=== PATIENT | female | born 1935 | race Caucasian/White ===

== ENCOUNTER 2017-01-16 12:19 | Emergency (ER) | payer MEDICARE, BC ==
[2017-01-16 13:45] LABS: Basophils % (A) 1 %; CH 27.8; CHCM 31.7; Eosinophils # (A) 0.1 k/uL (0-0.7); Eosinophils % (A) 2 %; HCT 42.1 % (34.0-46.0); HDW 2.31; HGB 13.7 gm/dL (11.4-16.0); Luc # (Auto) 0.12; Luc % (Auto) 2; Lymphocytes # (A) 1.7 k/uL (1.0-4.8); Lymphocytes % (A) 28 %; MCH 28.7 pg (25.0-35.0); MCHC 32.6 g/dL (31.0-37.0); MCV 87.8 fL (80.0-100.0); Mean Platelet Volume 7.3; Monocytes # (A) 0.3 k/uL (0-1.0); Monocytes % (A) 5 %; Neutrophils # (A) 3.8 k/uL (1.3-7.7); Neutrophils % (A) 64 %; RBC 4.79 m/uL (3.80-5.40); RDW 14.8 % (11.5-15.5); WBC (Perox) 5.49
[2017-01-16 13:56] LABS: ALT 29 U/L (9-52); AST 19 U/L (14-36); Alkaline Phosphatase 78 U/L (38-126); Anion Gap 8 mmol/L; Blood Urea Nitrogen 10 mg/dL (7-17); Calcium 9.1 mg/dL (8.4-10.2); Carbon Dioxide 25 mmol/L (22-30); Chloride 110 mmol/L (98-107); Glucose 91 mg/dL (74-99); Non-African American GFR(MDRD) >60 (>60 ml/min/1.73 sqM); Potassium 4.2 mmol/L (3.5-5.1); Sodium 143 mmol/L (137-145); Total Bilirubin 0.3 mg/dL (0.2-1.3); Total Protein 7.1 g/dL (6.3-8.2)
--- NOTE | 2017-01-16 13:56 | XR ---
EXAMINATION TYPE: XR chest 2V DATE OF EXAM: 01/16/2017 COMPARISON: Prior chest x-ray 10/06/2012 HISTORY: GI bleeding TECHNIQUE: Frontal and lateral views of the chest are obtained. FINDINGS: There are prominent lung volumes suggesting underlying COPD. The heart is enlarged. Aorta is dense. No pneumonia, pneumothorax, or pleural effusion. Pulmonary vascularity and jimmy are stable. IMPRESSION: Cardiomegaly.
--- NOTE | 2017-01-16 14:04 | ED ---
GI Bleed HPI - General Chief complaint: GI Bleed Stated complaint: Blood in Stool Source: patient Mode of arrival: wheelchair Limitations: no limitations - History of Present Illness Initial comments: 81-year-old female with past medical history of HTN, ND, and is paraplegic with indwelling Parra catheter presenting for evaluation of 2 weeks intermittent GI bleed. She states that she requires suppositories for bowel movements due to her paraplegic condition and that when she uses them she has small amounts of blood per rectum. She states sometimes it is bright red and sometimes it's dark and melanotic with a very foul smell. She has never had these symptoms before and denies previous GI bleeds. She denies any peptic ulcer disease and states that she only has NSAIDs once or twice a week. She has no other symptoms at this time denies chest pain, shortness breath, fevers, chills, nausea, vomiting, diaphoresis, lightheadedness/dizziness. - Related Data Home Medications Medication Instructions Recorded Confirmed ALPRAZolam [Xanax] 0.5 mg PO HS PRN 11/23/13 01/16/17 Acetaminophen Tab [Tylenol] 500 mg PO Q6H PRN 11/23/13 01/16/17 Bisacodyl [Dulcolax] 1 tab PO DAILY PRN 11/23/13 01/16/17 Cholecalciferol [Vitamin D3] 3,000 unit PO DAILY@1200 11/23/13 01/16/17 Diltiazem Cd [Cardizem CD] 240 mg PO DAILY 11/23/13 01/16/17 Multivitamin/Iron/Folic Acid 1 tab PO DAILY 11/23/13 01/16/17 [Centrum Complete Multivit Tab] Polyethylene Glycol 3350 [Miralax] 17 gm PO DAILY 01/16/17 01/16/17 Allergies Allergy/AdvReac Type Severity Reaction Status Date / Time codeine Allergy Unknown Swelling Verified 01/16/17 12:58 Iodinated Contrast Media - Allergy Unknown Unknown Verified 01/16/17 12:58 Oral and [Iodinated Contrast Media - IV Dye] atorvastatin calcium Allergy Unknown Verified 01/16/17 12:58 [From Lipitor] doxycycline Allergy Unknown Verified 01/16/17 12:58 iodine Allergy Unknown Verified 01/16/17 12:58 metronidazole [From Flagyl] Allergy Unknown Verified 01/16/17 12:58 Metronidazole HCl Allergy Unknown Verified 01/16/17 12:58 [From Flagyl] povidone-iodine Allergy Unknown Verified 01/16/17 12:58 [From Betadine] soap [From Betadine] Allergy Unknown Verified 01/16/17 12:58 Review of Systems ROS Statement: Those systems with pertinent positive or pertinent negative responses have been documented in the HPI. ROS Other: All systems not noted in ROS Statement are negative. Constitutional: Denies: fever, chills, weakness, weight change Eyes: Denies: eye pain ENT: Denies: ear pain, throat pain Respiratory: Denies: cough, dyspnea, wheezes, hemoptysis Cardiovascular: Denies: chest pain, palpitations, dyspnea on exertion, orthopnea , edema Endocrine: Denies: fatigue, polydipsia, polyuria Gastrointestinal: Reports: diarrhea, melena, hematochezia. Denies: abdominal pain, nausea, vomiting, constipation, hematemesis Genitourinary: Denies: urgency, dysuria, frequency, hematuria, discharge Musculoskeletal: Denies: back pain Skin: Reports: lesions (To her sacral region and buttocks that she states are healing pressure ulcers). Denies: change in color, change in hair/nails Neurological: Denies: headache, weakness Psychiatric: Denies: anxiety, depression Hematological/Lymphatic: Denies: easy bleeding, easy bruising Past Medical History Past Medical History: Hypertension, Myocardial Infarction (ND) Additional Past Medical History / Comment(s): fracture hip parra cath paraplegic Last Myocardial Infarction Date:: 2001 History of Any Multi-Drug Resistant Organisms: None Reported, MRSA Date of last positivie culture/infection: 2003 MDRO Source:: decubitus ulcer Past Surgical History: Back Surgery, Bladder Surgery, Joint Replacement Past Anesthesia/Blood Transfusion Reactions: Postoperative Nausea & Vomiting ( PONV) Additional Past Anesthesia/Blood Transfusion Reaction / Comment(s): blood transfusion 2012 Past Psychological History: No Psychological Hx Reported Smoking Status: Never smoker General Exam Limitations: no limitations General appearance: alert, in no apparent distress Head exam: Present: atraumatic, normocephalic, normal inspection Eye exam: Present: normal appearance, PERRL, EOMI. Absent: scleral icterus, conjunctival injection, periorbital swelling ENT exam: Present: normal exam, mucous membranes moist Neck exam: Present: normal inspection. Absent: tenderness, meningismus, lymphadenopathy Respiratory exam: Present: normal lung sounds bilaterally. Absent: respiratory distress, wheezes, rales, rhonchi, stridor Cardiovascular Exam: Present: regular rate, normal rhythm, normal heart sounds. Absent: systolic murmur, diastolic murmur, rubs, gallop, clicks GI/Abdominal exam: Present: soft, normal bowel sounds. Absent: distended, tenderness, guarding, rebound, rigid Rectal exam: Present: decreased rectal tone, other (No blood or stool noted on rectal exam). Absent: hemorrhoids, mass Extremities exam: Present: normal capillary refill. Absent: tenderness, pedal edema, joint swelling Back exam: Present: normal inspection Neurological exam: Present: alert, oriented X3, motor sensory deficit, other ( Patient is a paraplegic and has no lower extremity motor activity). Absent: reflexes normal Psychiatric exam: Present: normal affect, normal mood Skin exam: Present: warm, dry, other (Lesions to sacrum representing healing pressure ulcers). Absent: rash Course Vital Signs 01/16/17 01/16/17 12:45 14:01 Temperature 97.7 F Pulse Rate 78 72 Respiratory 20 16 Rate Blood Pressure 140/66 158/78 O2 Sat by Pulse 97 98 Oximetry Medical Decision Making - Medical Decision Making 81-year-old female who is a paraplegic with indwelling Parra catheter presenting for evaluation of intermittent rectal bleeding for the last 2 weeks. She uses suppositories to aid in bowel movements and states that the blood has been bright red as well as melanotic and foul-smelling. There are no other symptoms. She made an appointment with her GI specialist Dr. Darby and the appointment is for February 05. However the symptoms have been increasing and she wanted to be seen prior to that. She did not discuss with her primary care physician. On physical examination she has no abdominal pain, shortness of breath, or any other intrathoracic abnormalities. She has decreased rectal tone on rectal examination and no gross blood is noted on YANCY. There are multiple pressure ulcers to her sacral and buttocks area in multiple stages of healing and she states that she has been seen a specialist for these as well. We will obtain labs, EKG, chest x-ray and reevaluate. Labs revealed no significant abnormalities including hemoglobin of 13.7 and a negative occult stool blood. Hemoglobin is stable compared to previous draws as far back as 3 years ago. Chest x-ray shows cardiomegaly but no acute process. The patient was reevaluated and continued to have a stable physical exam. She was informed of all results and through shared decision making it was determined that she would be discharged with instructions to follow-up with her primary care physician as well as keep her appointment on February 05 with her GI specialist Dr. Zaragoza. She was further advised to continue to monitor her symptoms and return to this facility if they should worsen or persist. The patient and her daughter acknowledged an understanding of this information and agreed with this plan of care. - Lab Data Result diagrams: 01/16/17 13:10 01/16/17 13:10 Lab Results 01/16/17 01/16/17 01/16/17 Range/Units 13:10 13:10 13:10 WBC 6.0 (3.8-10.6) k/uL RBC 4.79 (3.80-5.40) m/uL Hgb 13.7 (11.4-16.0) gm/dL Hct 42.1 (34.0-46.0) % MCV 87.8 (80.0-100.0) fL MCH 28.7 (25.0-35.0) pg MCHC 32.6 (31.0-37.0) g/dL RDW 14.8 (11.5-15.5) % Plt Count 181 (150-450) k/uL Neutrophils % 64 % Lymphocytes % 28 % Monocytes % 5 % Eosinophils % 2 % Basophils % 1 % Neutrophils # 3.8 (1.3-7.7) k/uL Lymphocytes # 1.7 (1.0-4.8) k/uL Monocytes # 0.3 (0-1.0) k/uL Eosinophils # 0.1 (0-0.7) k/uL Basophils # 0.0 (0-0.2) k/uL Sodium 143 (137-145) mmol/L Potassium 4.2 (3.5-5.1) mmol/L Chloride 110 H (98-107) mmol/L Carbon Dioxide 25 (22-30) mmol/L Anion Gap 8 mmol/L BUN 10 (7-17) mg/dL Creatinine 0.40 L (0.52-1.04) mg/dL Est GFR (MDRD) Af Amer >60 (>60 ml/min/1.73 sqM) Est GFR (MDRD) Non-Af >60 (>60 ml/min/1.73 sqM) Glucose 91 (74-99) mg/dL Plasma Lactic Acid Migue 0.7 (0.7-2.0) mmol/L Calcium 9.1 (8.4-10.2) mg/dL Total Bilirubin 0.3 (0.2-1.3) mg/dL AST 19 (14-36) U/L ALT 29 (9-52) U/L Alkaline Phosphatase 78 (38-126) U/L Troponin I (0.000-0.034) ng/mL NT-Pro-B Natriuret Pep pg/mL Total Protein 7.1 (6.3-8.2) g/dL Albumin 3.8 (3.5-5.0) g/dL Lipase 156 (23-300) U/L Stool Occult Blood (Negative) 01/16/17 01/16/17 01/16/17 Range/Units 13:10 13:10 13:10 WBC (3.8-10.6) k/uL RBC (3.80-5.40) m/uL Hgb (11.4-16.0) gm/dL Hct (34.0-46.0) % MCV (80.0-100.0) fL MCH (25.0-35.0) pg MCHC (31.0-37.0) g/dL RDW (11.5-15.5) % Plt Count (150-450) k/uL Neutrophils % % Lymphocytes % % Monocytes % % Eosinophils % % Basophils % % Neutrophils # (1.3-7.7) k/uL Lymphocytes # (1.0-4.8) k/uL Monocytes # (0-1.0) k/uL Eosinophils # (0-0.7) k/uL Basophils # (0-0.2) k/uL Sodium (137-145) mmol/L Potassium (3.5-5.1) mmol/L Chloride (98-107) mmol/L Carbon Dioxide (22-30) mmol/L Anion Gap mmol/L BUN (7-17) mg/dL Creatinine (0.52-1.04) mg/dL Est GFR (MDRD) Af Amer (>60 ml/min/1.73 sqM) Est GFR (MDRD) Non-Af (>60 ml/min/1.73 sqM) Glucose (74-99) mg/dL Plasma Lactic Acid Migue (0.7-2.0) mmol/L Calcium (8.4-10.2) mg/dL Total Bilirubin (0.2-1.3) mg/dL AST (14-36) U/L ALT (9-52) U/L Alkaline Phosphatase (38-126) U/L Troponin I <0.012 (0.000-0.034) ng/mL NT-Pro-B Natriuret Pep 621 pg/mL Total Protein (6.3-8.2) g/dL Albumin (3.5-5.0) g/dL Lipase (23-300) U/L Stool Occult Blood Negative (Negative) 01/16/17 14:01 Normal sinus rhythm with moderate voltage criteria for LVH in aVL, and a ventricular rate of 63, SHANNAN 180, QRS 92, QT/QTc 438/448. Disposition Clinical Impression: GI bleed Disposition: HOME SELF-CARE Condition: Stable Instructions: Gastrointestinal Bleeding (ED) Referrals: Marc Mercer MD [Primary Care Provider] - 1-2 days Time of Disposition: 15:15
[2017-01-16 15:33] VITALS: BP 155/71; PULSE 55; RESP 18; TEMP 98.3
== END 2017-01-16 15:33 | disposition home or self-care (01) ==
LOC: EC 12:19
DX: K92.2 Gastrointestinal hemorrhage, unspecified (principal); I10 Essential (primary) hypertension; Z88.3 Allergy status to other anti-infective agents; Z88.5 Allergy status to narcotic agent; Z88.1 Allergy status to other antibiotic agents; Z91.048 Other nonmedicinal substance allergy status; Z91.041 Radiographic dye allergy status; Z88.8 Allergy status to other drugs, medicaments and biological substances; Z79.899 Other long term (current) drug therapy
CPT/HCPCS: 36415; 71020; 80053; 82272; 83605; 83690; 83880; 84484; 85025; 93005; 99285

== ENCOUNTER 2018-11-11 20:08 | Inpatient (IN) | payer MEDICARE, BC ==
[2018-11-11] MEDS ORDERED: DILTIAZEM DRIP BOLUS FROM BAG 1 MG SOLN IV ONE (20:25)
[2018-11-11] MEDS ORDERED: SODIUM CHLORIDE 0.9% 500 ML 500 ML IV STA (20:35)
--- NOTE | 2018-11-11 20:35 | ED ---
General Adult HPI - General Source: patient, EMS, RN notes reviewed Mode of arrival: EMS Limitations: no limitations <Vitor Hobson P - Last Filed: 11/11/18 22:09> <Miriam Zimmerman - Last Filed: 11/13/18 03:23> - General Chief complaint: Arrhythmia/Palpitations Stated complaint: Afib Time Seen by Provider: 11/11/18 20:24 - History of Present Illness Initial comments: 83-year-old female with a past medical history of NM, hypertension, chronic hip fracture, paraplegia, Parra catheter presents transferred from [facility] for atrial fibrillation. Patient presented to the emergency department with back pain and bilateral leg swelling. Patient was found to be in A. fib with RVR in the heart rates of 150s. Patient was subsequently started on heparin and a Cardizem bolus of 15 was given at [place]. Heart rate normalized the 70s to 80s. When patient presented here to the emergency department she was in A. fib RVR with a ventricular rate of 123. Cardizem drip was started at that time and heparin drip was continued. Patient denies any symptoms at this time states she is feeling well.Patient has no other complaints at this time including shortness of breath, chest pain, abdominal pain, nausea or vomiting, headache, or visual changes. (Vitor Hobson) - Related Data Home Medications Medication Instructions Recorded Confirmed ALPRAZolam [Xanax] 0.5 mg PO HS PRN 11/23/13 11/11/18 Acetaminophen Tab [Tylenol] 1,000 mg PO Q6H PRN 11/23/13 11/11/18 Cholecalciferol [Vitamin D3] 1,000 unit PO DAILY@1200 11/23/13 11/11/18 Diltiazem Cd [Cardizem CD] 240 mg PO DAILY 11/23/13 11/11/18 Multivitamin/Iron/Folic Acid 1 tab PO DAILY@1200 11/23/13 11/11/18 [Centrum Complete Multivit Tab] Sulfamethoxazole/Trimethoprim 1 tab PO HS 11/11/18 11/11/18 [Bactrim DS 800-160 mg] Vitamin E 100 unit PO DAILY@1200 11/11/18 11/11/18 Allergies Allergy/AdvReac Type Severity Reaction Status Date / Time codeine Allergy Unknown Swelling Verified 11/11/18 21:25 Iodinated Contrast- Oral and Allergy Unknown Unknown Verified 11/11/18 21:25 IV Dye [Iodinated Contrast Media - IV Dye] atorvastatin calcium Allergy Unknown Verified 11/11/18 21:25 [From Lipitor] doxycycline Allergy Unknown Verified 11/11/18 21:25 iodine Allergy Unknown Verified 11/11/18 21:25 metronidazole [From Flagyl] Allergy Unknown Verified 11/11/18 21:25 Metronidazole HCl Allergy Unknown Verified 11/11/18 21:25 [From Flagyl] povidone-iodine Allergy Unknown Verified 11/11/18 21:25 [From Betadine] soap [From Betadine] Allergy Unknown Verified 11/11/18 21:25 Review of Systems ROS Other: All systems not noted in ROS Statement are negative. <Vitor Hobson P - Last Filed: 11/11/18 22:09> ROS Other: All systems not noted in ROS Statement are negative. <Miriam Zimmerman P - Last Filed: 11/13/18 03:23> ROS Statement: Those systems with pertinent positive or pertinent negative responses have been documented in the HPI. Past Medical History Past Medical History: Hypertension, Myocardial Infarction (NM) Additional Past Medical History / Comment(s): fracture hip parra cath paraplegic Last Myocardial Infarction Date:: 2001 History of Any Multi-Drug Resistant Organisms: None Reported, MRSA Date of last positivie culture/infection: 2003 MDRO Source:: decubitus ulcer Past Surgical History: Back Surgery, Bladder Surgery, Joint Replacement Additional Past Surgical History / Comment(s): lt hip replacement Past Anesthesia/Blood Transfusion Reactions: Postoperative Nausea & Vomiting (PONV) Additional Past Anesthesia/Blood Transfusion Reaction / Comment(s): blood transfusion 2012 Past Psychological History: No Psychological Hx Reported Smoking Status: Never smoker Past Alcohol Use History: None Reported Past Drug Use History: None Reported - Past Family History Mother Family Medical History: No Reported History <Vitor Hobson P - Last Filed: 11/11/18 22:09> General Exam Limitations: no limitations General appearance: alert, in no apparent distress Head exam: Present: atraumatic, normocephalic, normal inspection Eye exam: Present: normal appearance, PERRL, EOMI. Absent: scleral icterus, conjunctival injection, periorbital swelling ENT exam: Present: normal exam, mucous membranes moist Neck exam: Present: normal inspection, full ROM. Absent: tenderness, meningismus, lymphadenopathy Respiratory exam: Present: normal lung sounds bilaterally. Absent: respiratory distress, wheezes, rales, rhonchi, stridor Cardiovascular Exam: Present: regular rate, normal rhythm, normal heart sounds. Absent: systolic murmur, diastolic murmur, rubs, gallop, clicks GI/Abdominal exam: Present: soft, normal bowel sounds. Absent: distended, tenderness, guarding, rebound, rigid Neurological exam: Present: alert, oriented X3, CN II-XII intact Psychiatric exam: Present: normal affect, normal mood <Vitor Hobson P - Last Filed: 11/11/18 22:09> Course Vital Signs 11/11/18 11/11/18 11/11/18 20:15 21:30 22:00 Temperature 98.4 F Pulse Rate 78 72 85 Respiratory 16 Rate Blood Pressure 99/77 136/87 114/74 O2 Sat by Pulse 99 99 98 Oximetry 11/11/18 11/11/18 11/12/18 22:30 23:00 00:09 Temperature Pulse Rate 68 66 77 Respiratory 16 Rate Blood Pressure 115/79 112/66 105/61 O2 Sat by Pulse 99 99 99 Oximetry Medical Decision Making <Vitor Hobson P - Last Filed: 11/11/18 22:09> - Lab Data Result diagrams: 11/12/18 02:34 11/12/18 02:34 <Miriam Zimmerman P - Last Filed: 11/13/18 03:23> - Medical Decision Making 83 year old female patient is in A. fib with RVR with a ventricular rate of 123 however going in and out of atrial fibrillation transferred from [facility]. Patient is pleasant, well appearing. Cardizem drip started and heparin drip continued. Patient does state she has a history of A fib and on cardizem at home. No blood thinners on board out patient. Blood pressure is stable. Lab work reveals a hemoglobin of 14.1, platelets 183. Sodium 139, potassium 3.4, magnesium 1.8, troponin less than 0.012. CT thorax was obtained which showed a heart borderline-enlarged with trace pericardial effusion small left and trace right pleural effusion. Small patch of groundglass in the posterior right upper lobe suggestive of nonspecific small infectious or inflammatory focus. Patient afebrile without significant WBC count denying cough. Patient will be admitted for afib RVR and cardiology consultation. (Vitor Hobson) I was available for consultation in the emergency department. The history and physical exam were done by the midlevel provider. I was consulted for this patient's care. I reviewed the case with the midlevel provider and based on their presentation of the patient, I agree with the assessment, medical decision making and plan of care as documented. Chart was dictated using [employer] dictation software. Attempts were made to correct any dictation errors however some typographical errors may persist. (Miriam Zimmerman) Disposition Is patient prescribed a controlled substance at d/c from ED?: No Time of Disposition: 21:12 <Vitor Hobson P - Last Filed: 11/11/18 22:09> <Miriam Zimmerman - Last Filed: 11/13/18 03:23> Clinical Impression: Atrial fibrillation with RVR Disposition: ADMITTED IP TO THIS HOSP Condition: Fair
[2018-11-11] MEDS ORDERED: DILTIAZEM 125 MG in SODIUM CHLORIDE 0.9% 100 ML IV SCH (21:00)
[2018-11-11] MEDS ORDERED: HEPARIN SODIUM,PORCINE 5,000 UNIT/ML 1 ML VIAL IV PRN (21:01)
--- NOTE | 2018-11-11 21:08 | XR ---
EXAMINATION TYPE: XR chest 2V DATE OF EXAM: 11/11/2018 COMPARISON: 01/16/[address] 11/11/2018 HISTORY: 83-year-old female with dysrhythmia TECHNIQUE: AP and lateral views FINDINGS: Heart mildly enlarged. Interstitial prominence and hyperinflation. Small effusions are present. No fr ank consolidation or pneumothorax. Degenerative changes at the AC joints. Bridging anterior endplate spondylosis suggesting DISH. IMPRESSION: Mild cardiomegaly and COPD. Small effusions are present and may reflect mild CHF/fluid overload state .
[2018-11-11] MEDS ORDERED: HEPARIN SOD,PORK IN 0.45% NACL 25,000 UNIT in 0.45% NACL 1 250ML.BAG IV SCH (21:15)
[2018-11-11] MEDS ORDERED: NITROGLYCERIN SL TABS 0.4 MG TAB SUBLINGUAL PRN (22:10)
[2018-11-11 23:02] LABS: Appearance,Urine Clear (Clear); Bacteria,Urine Occasional /hpf; Bilirubin,Urine Negative (Negative); Blood,Urine Trace (Negative); Color,Urine Yellow; Glucose,Urine (UA) Negative (Negative); Ketones,Urine 3+ (Negative); Leukocyte Esterase,Urine Moderate (Negative); Mucus,Urine Rare /hpf; Nitrite,Urine Positive (Negative); Protein,Urine Negative (Negative); RBC,Urine 4 /hpf (0-5); Specific Gravity,Urine 1.011 (1.001-1.035); Squamous Epithelial Cell,Urine 2 /hpf (0-4); Urobilinogen,Urine <2.0 mg/dL (<2.0); WBC,Urine 13 /hpf (0-5)
[2018-11-12] MEDS ORDERED: POTASSIUM CHLORIDE ER 20 MEQ TAB.ER PO STA (01:15)
--- NOTE | 2018-11-12 01:17 | P.HPIM ---
History of Present Illness H&P Date: 11/12/18 The patient is an 83 yo F with a PMH of CAD, HTN, and paraplegia w/ chronic indwelling parra and on maintenance abxs w/ Bactrim presented to the ED as a transfer from [facility] for Afib w/ RVR. The patient presented there earlier today for sudden onset of dizziness and feeling ill at home along w/ palpitations. The patient was first believed to be in SVT and was given Adenosine 8 mg and subsequently given Cardizem bolus and was started on the infusion along with Heparin and was transferred to [facility] ED. At time of the interview, the patient reported that her symptoms have resolved completely ever since her heart-rate became better controlled. She notes she has never had such symptoms before. The patient notes that she has been taking Cardizem for the past 25 years though was never told she had A-fib. She denied chest pain, SOB, nausea, vomiting, cough, fever, chills, abdominal pain, or diarrhea. The patient also denied any history of bleeding or noticing bright red blood per rectum or black tarry stools. The patient's records from [facility] were reviewed and she underwent an extensive evaluation there w/ Troponin < 0.012, EKG (from 8:20 pm on 11/11/18) showing Afib w/ RVR at 123 bpm. INR was 1.07, APTT 285, WBC 7, Hgb 14.1, Cr 0.4, and CXR showing mild cardiomegaly and COPD w/ mild pulm edema. Review of Systems Pertinent positives and negatives as discussed in HPI, a complete review of systems was performed and all other systems are negative. Past Medical History Past Medical History: Hypertension, Myocardial Infarction ([place]) Additional Past Medical History / Comment(s): fracture hip parra cath paraplegic Last Myocardial Infarction Date:: 2001 History of Any Multi-Drug Resistant Organisms: None Reported, MRSA Date of last positivie culture/infection: 2003 MDRO Source:: decubitus ulcer Past Surgical History: Back Surgery, Bladder Surgery, Joint Replacement Additional Past Surgical History / Comment(s): lt hip replacement Past Anesthesia/Blood Transfusion Reactions: Postoperative Nausea & Vomiting (PONV) Additional Past Anesthesia/Blood Transfusion Reaction / Comment(s): blood transfusion 2012 Past Psychological History: No Psychological Hx Reported Smoking Status: Never smoker Past Alcohol Use History: None Reported Past Drug Use History: None Reported - Past Family History Mother Family Medical History: No Reported History Medications and Allergies Home Medications Medication Instructions Recorded Confirmed Type ALPRAZolam [Xanax] 0.5 mg PO HS PRN 11/23/13 11/11/18 History Acetaminophen Tab [Tylenol] 1,000 mg PO Q6H PRN 11/23/13 11/11/18 History Cholecalciferol [Vitamin D3] 1,000 unit PO DAILY@1200 11/23/13 11/11/18 History Diltiazem Cd [Cardizem CD] 240 mg PO DAILY 11/23/13 11/11/18 History Multivitamin/Iron/Folic Acid 1 tab PO DAILY@1200 11/23/13 11/11/18 History [Centrum Complete Multivit Tab] Sulfamethoxazole/Trimethoprim 1 tab PO HS 11/11/18 11/11/18 History [Bactrim DS 800-160 mg] Vitamin E 100 unit PO DAILY@1200 11/11/18 11/11/18 History Allergies Allergy/AdvReac Type Severity Reaction Status Date / Time codeine Allergy Unknown Swelling Verified 11/11/18 21:25 Iodinated Contrast- Oral and Allergy Unknown Unknown Verified 11/11/18 21:25 IV Dye [Iodinated Contrast Media - IV Dye] atorvastatin calcium Allergy Unknown Verified 11/11/18 21:25 [From Lipitor] doxycycline Allergy Unknown Verified 11/11/18 21:25 iodine Allergy Unknown Verified 11/11/18 21:25 metronidazole [From Flagyl] Allergy Unknown Verified 11/11/18 21:25 Metronidazole HCl Allergy Unknown Verified 11/11/18 21:25 [From Flagyl] povidone-iodine Allergy Unknown Verified 11/11/18 21:25 [From Betadine] soap [From Betadine] Allergy Unknown Verified 11/11/18 21:25 Physical Exam Vitals: Vital Signs Temp Pulse Resp BP Pulse Ox 11/11/18 23:00 66 112/66 99 11/11/18 22:30 68 115/79 99 11/11/18 22:00 85 114/74 98 11/11/18 21:30 72 136/87 99 11/11/18 20:15 98.4 F 78 16 99/77 99 Intake and Output 11/11/18 11/11/18 11/12/18 14:59 22:59 06:59 Other: Weight 63.503 kg General: non toxic, no distress, appears at stated age, normal weight Derm: no unusual rashes/lesions no unusual ecchymoses, warm, dry Head: atraumatic, normocephalic, symmetric Eyes: EOMI, no lid lag, anicteric sclera, pupils equal round reactive to light ENT: Nose and ears atraumatic, no thrush, no pharyngeal erythema Neck: No thyromegaly, no cervical lymphadenopathy, trachea midline, supple Mouth: no lip lesion, mucus membranes moist Cardiovascular: S1S2 reg, no murmur, positive posterior tibial pulse bilateral, 2+ paige LE edema, capillary refill less than 2 seconds Lungs: CTA bilateral, no rhonchi, no rales , no accessory muscle use Abdominal: soft, nontender to palpation, no guarding, no appreciable organomegaly, normal bowel sounds Ext: no gross muscle atrophy, muscle strength 5 out of 5 in UEs paige w/ 0/5 in LEs paige, no contractures, Neuro: CN II-XI grossly intact, light touch intact all 4 extremities, finger to nose within normal limits Psych: Alert, oriented, appropriate affect Results Labs: Abnormal Lab Results - Last 24 Hours (Table) 11/11/18 Range/Units 22:36 Urine Ketones 3+ H (Negative) Urine Blood Trace H (Negative) Urine Nitrite Positive H (Negative) Ur Leukocyte Esterase Moderate H (Negative) Urine WBC 13 H (0-5) /hpf Urine WBC Clumps Rare H (None) /hpf Urine Bacteria Occasional H (None) /hpf Urine Mucus Rare H (None) /hpf Assessment and Plan Plan: A-fib w/ RVR -Will c/w Cardizem drip and resume home med Cardizem 240 mg PO ER -Will switch to Eliquis -Monitor CBC -Cardiac monitoring -Echocardiogram -Cardiology consult Hypokalemia -Replace and monitor Chronic conditions: HTN, Paraplegia w/ indwelling parra; CAD -Resume home medications DVT//GI prophylaxis -Eliquis The patient is admitted with an anticipated greater than 2 midnight stay for evaluation of Afib w/ RVR. CODE STATUS:Full Code Discussed with: Patient, daughter Anticipated discharge date: 11/13/[address]: Home A total of 35 minutes was spent on the care of this complex patient more than 50% of the time was spent in counseling and care coordination.
[2018-11-12] MEDS: DILTIAZEM CD 240 MG CAP.ER.24H PO SCH ×2 (01:56→10:23)
[2018-11-12] MEDS: APIXABAN 5 MG TAB PO SCH ×2 (01:57→22:13)
[2018-11-12] MEDS: ALPRAZolam 0.5 MG TAB PO PRN (02:50)
[2018-11-12 02:58] LABS: Anisocytosis Slight; Basophils % (A) 0 %; Eosinophils # (A) 0.1 k/uL (0-0.7); Eosinophils % (A) 1 %; HCT 40.8 % (34.0-46.0); HGB 12.9 gm/dL (11.4-16.0); Lymphocytes # (A) 1.8 k/uL (1.0-4.8); Lymphocytes % (A) 25 %; MCHC 31.7 g/dL (31.0-37.0); MCV 88.2 fL (80.0-100.0); Monocytes # (A) 0.4 k/uL (0-1.0); Monocytes % (A) 6 %; Neutrophils # (A) 4.7 k/uL (1.3-7.7); Neutrophils % (A) 66 %; Platelet Count 157 k/uL (150-450); RBC 4.62 m/uL (3.80-5.40); RDW 16.3 % (11.5-15.5); WBC 7.1 k/uL (3.8-10.6)
[2018-11-12 03:11] LABS: ALT 21 U/L (9-52); AST 20 U/L (14-36); Albumin 3.4 g/dL (3.5-5.0); Alkaline Phosphatase 95 U/L (38-126); Anion Gap 9 mmol/L; Blood Urea Nitrogen 8 mg/dL (7-17); Calcium 8.9 mg/dL (8.4-10.2); Carbon Dioxide 22 mmol/L (22-30); Chloride 107 mmol/L (98-107); Cholesterol 151 mg/dL (<200); Glucose 95 mg/dL (74-99); HDL Cholesterol 37 mg/dL (40-60); LDL Cholesterol,Calculated 99 mg/dL (0-99); Potassium 4.4 mmol/L (3.5-5.1); Sodium 138 mmol/L (137-145); Total Bilirubin 0.7 mg/dL (0.2-1.3); Total Protein 6.4 g/dL (6.3-8.2); Triglycerides 74 mg/dL (<150)
[2018-11-12] MEDS: MULTIVITAMINS, THERA 1 EACH TAB PO SCH (10:23)
[2018-11-12] MEDS ORDERED: NON-FORMULARY DRUG (Vitamin E [Vitamin E] 100 UNIT) PO SCH (12:00)
--- NOTE | 2018-11-12 12:02 | P.PN ---
Progress Note - Text Progress Note Date: 11/12/18 83-year-old female with PMH of CAD, hypertension, paraplegia with chronic indwelling Correia presents the ED from [facility] for atrial fibrillation with RVR. Patient was started on heparin drip and Cardizem bolus at [place] which converted the patient to sinus rhythm. Of note, PATIENT reports about some difficulties at home regarding being taking care of along with her has Alzheimer's. She denies any chest pain, shortness of breath or palpitations. Patient is in no acute distress. Heart is regular rate and rhythm. Normal S1-S2. No murmurs rubs or gallops. Lungs are clear to auscultation. There is no lower extremity edema. Atrial fibrillation with rapid ventricular rate, resolved Hypertension Paraplegia with indwelling Correia TSH is within normal limits. Continue diltiazem 240 mg by mouth daily. Anticoagulation with Eliquis 5 mg by mouth twice a day. Keep potassium greater than 4 magnesium greater than 2. Telemetry monitoring. Follow-up echocardiogram. Follow-up cardiology consultation. BP 100/50. Continue diltiazem. Monitor vitals, adjust medications as necessary. Continue Bactrim. Follow social work consult.
--- NOTE | 2018-11-12 13:02 | CONS ---
CONSULTATION CHIEF COMPLAINT: Palpitations. 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 She came to the ER, was found to be in atrial fibrillation, started on an anticoagulant and intravenous Cardizem. She subsequently converted to sinus rhythm and at the time of my evaluation this morning, she is in sinus rhythm and is free of symptoms. Her TSH is normal. There is no prior history of cardiomyopathy, congestive heart failure, coronary artery disease, or cardiac arrhythmia. PAST MEDICAL HISTORY: Significant for hypertension, paraplegia. MEDICATIONS: Medications at home include Cardizem CD 240 mg daily, Xanax, Bactrim. ALLERGIES: THE PATIENT HAS MULTIPLE ALLERGIESINCLUDING CODEINE, IV DYE, METRONIDAZOLE, BETADINE, AND SOAP. FAMILY HISTORY: Negative for premature coronary artery disease. SOCIAL HISTORY: Negative for current smoking, EtOH abuse, or drug abuse. REVIEW OF SYSTEMS: HEENT is unremarkable. Cardiac as described above. Respiratory as described above. GI negative. negative. Allergy/Immunology: Negative. Musculoskeletal as described above. Psychosocial negative. Endocrine: Negative. Derm: Negative. Constitutional negative. Oncological negative. Rest of the system review is not relevant. PHYSICAL EXAM: Is comfortable at rest. Afebrile. Vital signs are stable. There is no jugular venous distention. Carotid upstroke is normal. There is no bruit. Chest exam reveals good air entry bilaterally. Heart exam reveals first and second heart sounds. No gallop. No murmur. No rub. Abdomen is soft. Exam of extremities reveal trace edema. She has paraplegia. Hemoglobin is normal at 12.9, platelet count is 157. Troponin is 0.024. TSH is normal at 2.77. LDL cholesterol is 99. ASSESSMENT: 1. Paroxysmal atrial fibrillation. Patient is doing well. She is on Eliquis for long- term anticoagulation. I will obtain a 2D echo to evaluate LV function. If she has further episodes of atrial fibrillation, we will consider starting her on flecainide or Rythmol. 2. Hypertension. The patient is on Cardizem CD. We will stop the intravenous Cardizem at this time. I anticipate patient going home tomorrow. MMODL / IJN: [id number] /
[2018-11-12] MEDS ORDERED: SULFAMETHOX-TMP 800-160MG 1 EACH TAB PO SCH (21:00)
[2018-11-13] MEDS: ALPRAZolam 0.5 MG TAB PO PRN (01:41)
[2018-11-13 06:34] LABS: Anisocytosis Slight; Basophils % (A) 0 %; Eosinophils # (A) 0.1 k/uL (0-0.7); Eosinophils % (A) 2 %; HCT 38.9 % (34.0-46.0); HGB 12.5 gm/dL (11.4-16.0); Lymphocytes # (A) 1.7 k/uL (1.0-4.8); Lymphocytes % (A) 28 %; MCHC 32.2 g/dL (31.0-37.0); Mean Platelet Volume 7.8; Monocytes # (A) 0.3 k/uL (0-1.0); Monocytes % (A) 5 %; Neutrophils # (A) 3.7 k/uL (1.3-7.7); Neutrophils % (A) 62 %; Platelet Count 160 k/uL (150-450); RBC 4.48 m/uL (3.80-5.40); RDW 16.3 % (11.5-15.5)
[2018-11-13] MEDS: APIXABAN 5 MG TAB PO SCH (09:43)
[2018-11-13] MEDS: DILTIAZEM CD 240 MG CAP.ER.24H PO SCH (09:43)
[2018-11-13] MEDS: MULTIVITAMINS, THERA 1 EACH TAB PO SCH (09:43)
--- NOTE | 2018-11-13 10:29 | P.PN ---
Subjective Progress Note Date: 11/13/18 This is an 83-year-old female patient with history of hypertension, paraplegia following spinal cord injury 45 years ago, presented to the hospital with symptoms of palpitations. She was found to be in atrial fibrillation, initiated on anticoagulation. She subsequently converted to normal sinus rhythm. TSH level was normal. Echo cardiac gram with Doppler study was performed this morning which is yet pending. Continues to be in a normal sinus rhythm this morning. Objective - Vital Signs Vital signs: Vital Signs Temp 98 F 11/13/18 04:00 Pulse 78 11/13/18 04:00 Resp 18 11/13/18 04:00 BP 123/65 11/13/18 04:00 Pulse Ox 94 L 11/13/18 04:00 Intake & Output 11/12/18 11/13/18 11/13/18 18:59 06:59 18:59 Intake Total 462 100 Output Total 1200 3200 1000 Balance -738 -3100 -1000 Weight 66.5 kg Intake: Oral 462 100 Output: Urine 1200 3200 1000 Uretheral (Correia) 900 900 Other: Voiding Method Indwelling Catheter Indwelling Catheter - Exam PHYSICAL EXAMINATION: GENERAL: 83-year-old female in no acute distress at the time of my examination HEENT: Head is atraumatic, normocephalic. Pupils equal, round. Sclera a nicteric. Conjunctiva are clear. Mucous membranes of the mouth are moist. Neck is supple. There is no elevated jugular venous pressure. No carotid bruit is heard. HEART EXAMINATION: Heart S1, S2 normal. No murmur or gallop heard. CHEST EXAMINATION: Lungs are clear to auscultation and precussion. No chest wall tenderness is noted on palpation or with deep breathing. ABDOMEN: Soft, nontender. Bowel sounds are heard. No organomegaly noted. EXTREMITIES: 2+ peripheral pulses with trace evidence of peripheral edema and no calf tenderness noted. NEUROLOGIC patient is awake, alert and oriented 3 . . - Labs CBC & Chem 7: 11/13/18 06:23 11/12/18 02:34 Labs: Abnormal Lab Results - Last 24 Hours (Table) 11/13/18 Range/Units 06:23 RDW 16.3 H (11.5-15.5) % Microbiology - Last 24 Hours (Table) 11/11/18 22:36 Urine Culture - Final Urine,Catheterized Assessment and Plan Plan: Assessment and plan #1 palpitations with evidence of atrial fibrillation, paroxysmal, patient currently remaining in normal sinus rhythm. 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 Continue Eliquis and Cardizem. Discharge once cleared by primary. DNP note has been reviewed, I agree with a documented findings and plan of care. Patient was seen and examined.
--- NOTE | 2018-11-13 12:40 | ECHOF ---
Referral Reason:afib MEASUREMENTS -------- HEIGHT: 162.6 cm WEIGHT: 66.2 kg BP: 123/65 RVIDd: 2.6 cm (< 3.3) IVSd: 1.4 cm (0.6 - 1.1) LVIDd: 5.0 cm (3.9 - 5.3) LVPWd: 1.4 cm (0.6 - 1.1) IVSs: 1.6 cm LVIDs: 3.9 cm LVPWs: 1.8 cm LA Diam: 3.6 cm (2.7 - 3.8) Ao Diam: 2.6 cm (2.0 - 3.7) AV Cusp: 1.6 cm (1.5 - 2.6) LA Diam: 4.3 cm (2.7 - 3.8) MV EXCURSION: 18.742 mm (> 18.000) MV EF SLOPE: 121 mm/s (70 - 150) EPSS: 2.5 cm MV E Moises: 0.70 m/s MV DecT: 219 ms MV A Moises: 0.87 m/s MV E/A Ratio: 0.80 RAP: 5.00 mmHg RVSP: 34.59 mmHg FINDINGS -------- Atrial fibrillation. This was a technically adequate study. The left ventricular size is normal. Left ventricular wall thickness is normal. Overall left vent ricular systolic function is moderate-severely impaired with, an EF between 30 - 35 %. Anterseptal Hypokinesis Inferior Hypokinesis Sawyer Hypokinesis. The right ventricle is normal in size. The left atrial size is normal. The right atrial size is normal. Interatrial and interventricular septum intact. There is mild aortic valve sclerosis. Trace amount of aortic regurgitation. Mild mitral annular calcification present. Mild mitral regurgitation is present. Mild tricuspid regurgitation present. There is mild pulmonary hypertension. The right ventricular systolic pressure, as measured by Doppler, is 34.59mmHg. Trace/mild (physiologic) pulmonic regurgitation. The aortic root size is normal. Normal inferior vena cava with normal inspiratory collapse consistent with estimated right atrial pre ssure of 5 mmHg. There is no pericardial effusion. CONCLUSIONS -------- 1. The left ventricular size is normal. 2. Left ventricular wall thickness is normal. 3. Overall left ventricular systolic function is moderate-severely impaired with, an EF between 30 - 35 %. 4. Anterseptal Hypokinesis 5. Inferior Hypokinesis 6. Sawyer Hypokinesis. 7. The right ventricle is normal in size. 8. The left atrial size is normal. 9. The right atrial size is normal. 10. Interatrial and interventricular septum intact. 11. There is mild aortic valve sclerosis. 12. Trace amount of aortic regurgitation. 13. Mild mitral annular calcification present. 14. Mild mitral regurgitation is present. 15. Mild tricuspid regurgitation present. 16. There is mild pulmonary hypertension. 17. The right ventricular systolic pressure, as measured by Doppler, is 34.59mmHg. 18. Trace/mild (physiologic) pulmonic regurgitation. 19. The aortic root size is normal. 20. Normal inferior vena cava with normal inspiratory collapse consistent with estimated right atrial pressure of 5 mmHg. 21. There is no pericardial effusion. PARTS DELIVERY DRIVER: Kelly Kendrick RDCS
[2018-11-13 14:49] VITALS: BP 124/65; PULSE 82; RESP 16; TEMP 97.5
--- NOTE | 2018-11-13 14:55 | P.DS ---
Providers Date of admission: 11/11/18 21:48 Expected date of discharge: 11/13/18 Attending physician: Nicolasa Uribe MD Consults: 11/11/18 22:10 Consult Physician Urgent Consulting Provider: Ross Mccoy Consult Reason/Comments: Afib RVR Do you want consulting provider notified?: Yes Primary care physician: [facility] Course: 83 yo F with a PMH of CAD, HTN, and paraplegia w/ chronic indwelling parra and on maintenance abxs w/ Bactrim presented to the ED as a transfer from [facility] for Afib w/ RVR. The patient presented there earlier today for sudden onset of dizziness and feeling ill at home along w/ palpitations. The patient was first believed to be in SVT and was given Adenosine 8 mg and subsequently given Cardizem bolus and was started on the infusion along with Heparin and was transferred to [facility] ED. At time of the interview, the patient reported that her symptoms have resolved completely ever since her heart-rate became better controlled. She notes she has never had such symptoms before. The patient notes that she has been taking Cardizem for the past 25 years though was never told she had A-fib. She denied chest pain, SOB, nausea, vomiting, cough, fever, chills, abdominal pain, or diarrhea. The patient also denied any history of bleeding or noticing bright red blood per rectum or black tarry stools. The patient's records from [facility] were reviewed and she underwent an extensive evaluation there w/ Troponin < 0.012, EKG (from 8:20 pm on 11/11/18) showing Afib w/ RVR at 123 bpm. INR was 1.07, APTT 285, WBC 7, Hgb 14.1, Cr 0.4, and CXR showing mild cardiomegaly and COPD w/ mild pulm edema. Her TSH was within normal limits. Patient had converted to sinus rhythm with the medications given to her at [facility]. She is continued on diltiazem 240 mg by mouth daily. She was started on anticoagulation with Eliquis 5 mg by mouth twice a day. Echocardiogram was done which showed EF 30- 35% with regional wall motion abnormalities. Patient was seen by cardiology and recommended medical management, cleared for discharge. Patient was seen and examined prior to discharge. No acute events overnight. Patient reports no further episodes of chest pain, shortness of breath or palpitations. No nausea or vomiting. No fever or chills. She is looking forward to going home. General: [non toxic], [no distress], [appears at stated age] Derm: [warm], [dry] Head: [atraumatic], [normocephalic], [symmetric] Eyes: [EOMI], [no lid lag], [anicteric sclera] Mouth: [no lip lesion], [mucus membranes moist] Cardiovascular: [S1S2 reg], [irregularly irregular], [positive DP pulse bilateral], Lungs: [Decreased breath sounds bilateral], [no rhonchi, no rales] , [no accessory muscle use] Abdominal: [soft], [ nontender to palpation], [no guarding], [no appreciable organomegaly] Ext: [no gross muscle atrophy], [no edema], [no contractures] Psych: [Alert], [oriented], [appropriate affect] Atrial fibrillation with rapid ventricular rate, resolved Heart failure with reduced ejection fraction Hypertension Paraplegia with indwelling Parra TSH is within normal limits. Continue diltiazem 240 mg by mouth daily. Anticoagulation with Eliquis 5 mg by mouth twice a day. Keep potassium greater than 4 magnesium greater than 2. Telemetry monitoring. Echocardiogram shows EF 30-35% with regional wall motion abnormalities. Follow-up cardiology consultation. Echo cardiac shows EF 30-35% with regional wall motion abnormalities. Patient is not on CHAVA inhibitor or beta tyrone. She does not take aspirin or cholesterol medication as well. Patient will follow-up with her it business systems analyst within 1 week to discuss these options. BP 121/73. Continue diltiazem. Monitor vitals, adjust medications as necessary. Continue Bactrim. Follow social work consult. This complex discharge took greater than 30 minutes. Pertinent Studies: Chest x-ray, echocardiogram Patient Condition at Discharge: Fair Plan - Discharge Summary Discharge Rx Participant: No New Discharge Prescriptions: New Apixaban [Eliquis] 5 mg PO BID #60 tab Continue Diltiazem Cd [Cardizem CD] 240 mg PO DAILY Multivitamin/Iron/Folic Acid [Centrum Complete Multivit Tab] 1 tab PO DAILY@1200 Cholecalciferol [Vitamin D3] 1,000 unit PO DAILY@1200 Acetaminophen Tab [Tylenol] 1,000 mg PO Q6H PRN PRN Reason: Pain ALPRAZolam [Xanax] 0.5 mg PO HS PRN PRN Reason: Insomnia Sulfamethoxazole/Trimethoprim [Bactrim DS 800-160 mg] 1 tab PO HS Vitamin E 100 unit PO DAILY@1200 Discharge Medication List ALPRAZolam [Xanax] 0.5 mg PO HS PRN 11/23/13 [History] Acetaminophen Tab [Tylenol] 1,000 mg PO Q6H PRN 11/23/13 [History] Cholecalciferol [Vitamin D3] 1,000 unit PO DAILY@1200 11/23/13 [History] Diltiazem Cd [Cardizem CD] 240 mg PO DAILY 11/23/13 [History] Multivitamin/Iron/Folic Acid [Centrum Complete Multivit Tab] 1 tab PO DAILY@1200 11/23/13 [History] Sulfamethoxazole/Trimethoprim [Bactrim DS 800-160 mg] 1 tab PO HS 11/11/18 [History] Vitamin E 100 unit PO DAILY@1200 11/11/18 [History] Apixaban [Eliquis] 5 mg PO BID #60 tab 11/13/18 [Rx] Follow up Appointment(s)/Referral(s): Marc Mercer MD [Primary Care Provider] - 1-2 days Anthony Martínez DO [REFERRING] - 1 Week (New patient, lives in [place], closer to home.) Brett Grullon MD [STAFF PHYSICIAN] - 11/29/18 4:30 pm (Vocational Horticulture Instructor.) Patient Instructions/Handouts: A-fib (Atrial Fibrillation) (DC), Pleural Effusion (DC), Safe Use of Anticoagulants (DC) Activity/Diet/Wound Care/Special Instructions: Please follow up with primary physician within one week of discharge. Follow-up with cardiology within 1 week of discharge. He will need to be started on an CHAVA inhibitor along with a beta tyrone along with aspirin and a cholesterol medication for history of heart disease and systolic CHF. Please see her it business systems analyst for further details. Discharge Disposition: HOME SELF-CARE
[2018-11-13] MEDS ORDERED: FLUCONAZOLE 150 MG TAB PO STA (15:07)
--- NOTE | 2018-11-15 13:17 | CDI ---
Documentation Clarification Form Date: 11/15/2018 12:07:00 PM From: Laura Zarate Rahel Deleon, Gathering Machine Setter Hours-8:30 am & 5 pm M-Naomie Admit Date: 11/11/2018 9:48:00 PM Patient Name: Albertina Camilo Visit Number: [id number] Discharge Date: 11/13/2018 4:50:00 PM ATTENTION: The Clinical Documentation Specialists (CDI) and [facility] Coding Staff appreciate your assistance in clarifying documentation. Please respond to the clarification below the line at the bottom and electronically sign. The CDI & [facility] Coding staff will review the response and follow-up if needed. Please note: Queries are made part of the Legal Health Record. If you have any questions, please contact the author of this message via ITS. Dr. Nicolasa Uribe Systolic CHF is documented in the PNs, H&P, DS, Consult History/Risk Factors: HTN, AFIB, CAD Echocardiogram Results: Impaired systolic function with EF between 30-35% Chest X Ray: Effusions may reflect mild CHF/fluid overload state Treatment: CHAVA inhibitor along with Beta Radha, aspirin and cholesterol medicine for Systolic CHF In your professional opinion, can you please clarify the acuity of CHF if known? Systolic Heart Failure: Acute Chronic Acute on Chronic Unable to Determine Other, please specify MTDD
== END 2018-11-13 16:50 | disposition home or self-care (01) | DRG 309 ==
LOC: EC 20:08 → 3SCARD 21:48
PROVIDERS: ADMIT Internal Medicine; ATTEND Internal Medicine
DX: I48.0 Paroxysmal atrial fibrillation (principal); G82.20 Paraplegia, unspecified; I50.22 Chronic systolic (congestive) heart failure; I50.20 Unspecified systolic (congestive) heart failure; I11.0 Hypertensive heart disease with heart failure; J44.9 Chronic obstructive pulmonary disease, unspecified; I25.2 Old myocardial infarction; E87.6 Hypokalemia; I25.10 Atherosclerotic heart disease of native coronary artery without angina pectoris; T14.8XXS Other injury of unspecified body region, sequela; Z79.899 Other long term (current) drug therapy; Z91.041 Radiographic dye allergy status; Z86.14 Personal history of Methicillin resistant Staphylococcus aureus infection; Z96.642 Presence of left artificial hip joint; Z88.5 Allergy status to narcotic agent; Z88.8 Allergy status to other drugs, medicaments and biological substances; Z88.1 Allergy status to other antibiotic agents
CPT/HCPCS: 71046; 80053; 80061; 81001; 83735; 84443; 84484; 85025; 87086; 93306; 96365; 96366; 99285